=== PATIENT | female | born 1985 | race Caucasian/White ===

== ENCOUNTER 2024-09-23 22:54 | Emergency (ER) | payer OTHER, SELFPAY ==
[2024-09-23 22:57] VITALS: BP 116/50
[2024-09-23] MEDS: NSS 1000 IV (23:56)
[2024-09-23] MEDS: ZOFRAN 4 MG IV (23:56)
[2024-09-23 23:57] VITALS: BMI 18.9
[2024-09-24 00:18] LABS: % Basophils 0.5 % (0-2); % Immature Granulocytes 0.5 % (0-0.5); % Lymphocytes 36.8 % (20.5-51.1); % Monocytes 16.7 % (1.7-9.3); % Neutrophils 44.5 % (42.2-75.2); Absolute Lymphocytes 0.8 10^3/uL (1.2-3.4); Absolute Monocytes 0.3 10^3/uL (0.1-0.6); Absolute Neutrophils 0.9 10^3/uL (1.4-6.5); Hematocrit 36.4 % (37.0-47.0); Hemoglobin 12.5 g/dL (12.0-16.0); Mean Corp Hgb Conc. 34.3 g/dL (33.0-37.0); Mean Corpuscular Hgb 30.7 pg (27.0-31.0); Mean Corpuscular Volume 89.4 fL (81.0-99.0); Mean Platelet Volume 10.2 fL (7.4-10.4); Nucleated Red Blood Cells % 0 %; Platelet Count 134 10^3/uL (130-400); Red Blood Cell Count 4.07 10^6/uL (4.20-5.40); Red Cell Dist. Width 11.9 % (11.5-14.5)
[2024-09-24 00:29] LABS: HCG, Serum Qualitative Screen Negative
[2024-09-24 00:35] LABS: ALT (SGPT) 23 U/L (0-35); AST (SGOT) 33 U/L (14-36); Albumin 4.7 g/dl (3.5-5.0); Alkaline Phosphatase 55 U/L (38-126); Blood Urea Nitrogen 29 mg/dl (7-17); Calcium 9.2 mg/dl (8.4-10.2); Carbon Dioxide 22 mmol/L (22-30); Chloride 103 mmol/L (98-107); Estimated Creatinine Clearance 75 ml/min; Glucose 65 mg/dl (70-99); Potassium 4.2 mmol/L (3.5-5.1); Sodium 136 mmol/L (135-145); Total Bilirubin 0.8 mg/dl (0.2-1.3); eGFR > 60.00
--- NOTE | 2024-09-24 01:51 | EDRN ---
Updated patient on labs and she is aware that we need a urine specimen, patient states she is feeling better as well, drinking water to try to get a specimen.
--- NOTE | 2024-09-24 01:58 | EDRN ---
Dr. Bob at bedside taking with patient going over results.
[2024-09-24] MEDS: NSS 1000 IV (02:03)
[2024-09-24 02:39] LABS: Urine Albumin 2+ (Neg - Trace); Urine Bilirubin Negative (Negative); Urine Character Clear (Clear); Urine Color Yellow; Urine Glucose Negative (Negative); Urine Ketone 3+ (Negative); Urine Leukocyte Negative (Negative); Urine Nitrite Negative (Negative); Urine Occult Blood Negative (Negative); Urine Urobilinogen Negative (Neg - 1+)
[2024-09-24 02:55] LABS: Urine Mucus Moderate
[2024-09-24 02:56] LABS: Urine Bacteria Moderate (Negative)
--- NOTE | 2024-09-24 03:53 | ED.GENMED ---
History of Present Illness
General
Chief Complaint: Abdominal Symptoms
Source: patient and spouse
Time Seen by Provider: 09/23/24 23:49
History of Present Illness
History of Present Illness:
This is a 39-year-old female who presents with persistent nausea and vomiting. She states she has had the symptoms over the last 2 days and unable to hold anything down when she tries eat or drink. She admits that her daughter also had a diarrheal
illness with some abdominal discomfort. The patient denies fevers. No hematochezia or melena. No rash. No recent travel. No dysuria or urinary. No flank pain.. Spouse states that the daughter is feeling better.
Past History
Past History
ED Past Medical History: None
Phy Exam
Physical Exam
Physical Exam:
CONSTITUTIONAL Patient alert and oriented to person, place and time. Well-appearing. Vital signs reviewed.
HEAD atraumatic, normocephalic.
EYES eyelids normal to inspection, Extraocular muscles intact, Conjunctiva normal, Sclera normal.
NECK normal range of motion, Trachea midline, no jugular venous distention.
RESPIRATORY CHEST No respiratory distress noted, Chest expansion equal
ABDOMEN abdomen nontender, Bowel sounds normal. No distention. No CVA tenderness
BACK normal inspection, no obvious deformities
UPPER EXTREMITY range of motion normal, Motor strength normal, no cyanosis, no edema.
LOWER EXTREMITY range of motion normal, Motor strength normal, no cyanosis, no edema.
NEURO Speech normal, No focal motor deficits, Marii coma scale 15, Memory normal, Cranial Nerves intact to screening exam.
SKIN skin warm, dry, and normal in color.
Course
Orders/Labs/Results
Orders:
Orders
09/23/24 23:49
Ondansetron Injectable [Zofran] 4 mg .ROUTE .[facility]
09/23/24 23:51
0.9% Sodium Chloride 1000 ml [Nss] 1,000 ml IV BOLUS
Ondansetron Injectable [Zofran] 4 mg IV NOW STA
Test Result ONCE
09/23/24 23:57
CMP [Comprehensive Metabolic Panel] Urgent
Complete Blood Count/With Diff Urgent
HCG, Serum Qualitative Screen Urgent
09/24/24 01:48
Influenza A+B Rapid Molecular Urgent
BUDDY Source: Nasal Swab
Specimen Description:
09/24/24 02:02
0.9% Sodium Chloride 1000 ml [Nss] 1,000 ml IV BOLUS
09/24/24 02:31
Urinalysis Reflex To Culture Urgent
Date Specimen was Collected: 09/24/24
Time Specimen was Collected: 01:49
Urine Microscopic Reflex Cult Urgent
Urine Culture Urgent
BUDDY Source: U
Specimen Description:
Date Specimen was Collected: 09/24/24
Time Specimen was Collected: 01:49
Abnormal Lab Results
09/23/24 09/24/24
23:57 02:31
WBC 2.0 L* 10^3/uL
(4.8-10.8)
RBC 4.07 L 10^6/uL
(4.20-5.40)
Hct 36.4 L %
(37.0-47.0)
Absolute Neuts (auto) 0.9 L* 10^3/uL
(1.4-6.5)
Absolute Lymphs (auto) 0.8 L 10^3/uL
(1.2-3.4)
Monocytes % 16.7 H %
(1.7-9.3)
BUN 29 H mg/dl
(7-17)
Glucose 65 L mg/dl
(70-99)
Urine Ketones 3+ A
(Negative)
Urine RBC 3-6 A /HPF
(0-2)
Urine Bacteria (Reflex) Moderate A
(Negative)
Urine Albumin (Reflex) 2+ A
(Neg - Trace)
09/23/24 23:57
09/23/24 23:57
Vital Signs
Initial and Last Documented VS:
Initial Vital Signs
Temp Pulse Resp BP Pulse Ox
98.6 F 94 18 116/50 100
09/23/24 22:57 09/23/24 22:57 09/23/24 22:57 09/23/24 22:57 09/23/24 22:57
Last Documented Vital Signs
Temp Pulse Resp BP Pulse Ox
98.6 F 94 18 116/50 100
09/23/24 22:57 09/23/24 22:57 09/23/24 22:57 09/23/24 22:57 09/23/24 22:57
MDM/Problems Addressed
MDM/Problems Addressed:
Enteritis, vomiting, dehydration, leukopenia
*Pulse Oximetry
Patient hypoxic: no
*Critical Care Note
Total Time (30-74mins, 75-104mins- exclusive of procedures): Not Applicable
Data Reviewed
Source: patient and spouse
Further Testing Considered But Not Given:
Considered CT but abdomen benign
Patient Management
Escalation/DeEscalation of care consider admission/obs:
Patient appears well. Feels much better. IV fluids x 2 L given. Patient urinated. Okay for discharge
ED Attending Note
-
Portions of this chart may have been created with voice recognition software.� Occasional wrong word or��sound alike� substitutions may have occurred due to the inherent limitations of voice recognition software.
Discharge Plan
Departure
Patient Disposition: Home (Routine Discharge)
Date of Disposition: 09/24/24
Time of Disposition: 03:58
Patient with high blood pressure during this ER visit?: No
Discharge Problem:
Vomiting
Instructions: Clear Liquid Diet, Nausea and Vomiting, Adult (DC)
Prescriptions:
New
ondansetron 4 mg tablet,disintegrating
4 mg PO TIDPRN PRN (Reason: nausea/vomiting) Qty: 14 0RF
Referrals:
Mary Ramirez MD [Family Provider] -
Activity Restrictions/Additional Instructions:
Please advance diet slowly. Drink plenty fluids. Return immediately for intractable pain, intractable vomiting, fevers or any other concerns. Please consider having your lab work repeated in about 2 to 3 weeks.
Interventions
Interventions:
*Risk Screen - Suicide Last Done: 09/23/24 22:57
*General Assessment Last Done: 09/23/24 23:57
*Neglect/Abuse Screening Last Done: 09/23/24 22:57
*ED- Fall Risk Assessment Last Done: 09/23/24 23:57
*ED COVID-19 Vaccine History Last Done: 09/23/24 23:57
FG-[id number] Assessment Last Done: 09/24/24 00:14
Discharge Date and Time
Print Language: MONGOLIAN
[2024-09-24 03:57] VITALS: BP 92/50
== END 2024-09-24 04:08 | disposition home or self-care (01) ==
LOC: EMR 22:54
PROVIDERS: EMERGENCY PHYSICIAN Emergency Medicine; FAMILY PHYSICIAN Family Medicine
DX: R11.2 Nausea with vomiting, unspecified (principal)
CPT/HCPCS: 99284; 96374; 96361 ×2; 80053; 81003; 81015; 84703; 85025; 87086; 87502